=== PATIENT | female | born 1950 | race Caucasian/White ===

== ENCOUNTER 2018-06-03 20:59 | Observation (INO) | payer MEDICARE, BC ==
--- NOTE | 2018-06-03 22:10 | ER Document Report ---
ED General - General Chief Complaint: Palpitations Stated Complaint: NAUSEA, HEART RACING, BACK PAIN Time Seen by Provider: 06/03/18 22:00 Notes: Patient is a 68-year-old female is visiting family from out of town. She says that today she started having severe upper abdominal pain after eating a sandwich. She says she had only about 8 ounces of wine at a wine tasting but did not have a large amount of alcohol. She said after she started eating the same when she started developing upper abdomen. She felt very nauseous. She did have one small bowel movement. She says she has pain extending goes up into her right shoulder blade. No fevers. No actual vomiting. No diarrhea. No blood in her stool. She says she has a lot of pressure in her abdomen going to her back and feels as if she vomited she would feel better. She has a history of a partial colectomy approximately year ago due to recurrent diverticulitis. She is never had bowel obstruction. She denies any dysuria or difficulty urinating. She has no other complaints at this time. She has had previous appendectomy. She still has her gallbladder. Past Medical History - Social History Smoking Status: Never Smoker Frequency of alcohol use: Occasional Drug Abuse: None Family History: Reviewed & Not Pertinent Review of Systems - Review of Systems Notes: My Normal Review Basic REVIEW OF SYSTEMS: CONSTITUTIONAL : Denies fever, chills, or sweats. Denies recent illness. EENT: Denies eye, ear, throat, or mouth pain or symptoms. Denies nasal or sinus congestion. CARDIOVASCULAR: Denies chest pain. RESPIRATORY: Denies cough, cold, or chest congestion. Denies shortness of breath, difficulty breathing, or wheezing. GASTROINTESTINAL: Abdominal pain. Nausea. GENITOURINARY: Denies difficulty urinating, painful urination, burning, frequency, or blood in urine. MUSCULOSKELETAL: Denies neck or back pain or joint pain or swelling. SKIN: Denies rash or skin lesions. Denies weakness or paralysis or loss of use of either side. Denies problems with gait or speech. Denies sensory or motor loss. ALL OTHER SYSTEMS REVIEWED AND NEGATIVE. Physical Exam - Vital signs Vitals: Temp Pulse Resp BP Pulse Ox 99.2 F 121 H 18 141/72 H 95 06/03/18 21:24 06/03/18 21:24 06/03/18 21:24 06/03/18 21:24 06/03/18 21:24 - Notes Notes: General Appearance: Well nourished, alert, cooperative, no acute distress, mild to moderate obvious discomfort. Vitals: reviewed, See vital signs table. Head: no swelling or tenderness to the head Eyes: PERRL, EOMI, Conjuctiva clear Mouth: No decreasd moisture Lungs: No wheezing, No rales, No rhonci, No accessory muscle use, good air exchange bilaterally. Heart: Mildly tachycardic rate, Regular rythm, No murmur, no rub Abdomen: Normal BS, soft, No rigidity, patient has bilateral upper abdominal tenderness that seems worse over the epigastric and right upper quadrant. Lower abdomen is nontender to palpation., No guarding, no rebound, no abdominal masses, no organomegaly Extremities: strength 5/5 in all extremities, good pulses in all extremities, no swelling or tenderness in the extremities, no edema. Skin: warm, dry, appropriate color, no rash Neuro: speech clear, oriented x 3, normal affect, responds appropriately to questions. Course - Re-evaluation Re-evalutation: 06/04/18 00:20 Patient's workup shows evidence of acute cholecystitis. I did reevaluate her abdomen and now her pain is more more focal to the right upper quadrant is worsening of the right upper quadrant. Orders more pain medicine. She also felt warm and reexamination therefore I have ordered some rectal Tylenol. I will order some IV fluids as well. I did call the general surgeon, Dr. Barrios , who agrees to come evaluate the patient for admission. I have ordered Invanz. Dictation of this chart was performed using voice recognition software; therefore, there may be some unintended grammatical errors. - Vital Signs Vital signs: Temp Pulse Resp BP Pulse Ox 99.2 F 121 H 18 141/72 H 95 06/03/18 21:24 06/03/18 21:24 06/03/18 21:24 06/03/18 21:24 06/03/18 21:24 - Laboratory Result Diagrams: 06/03/18 22:25 06/03/18 22:25 Laboratory results interpreted by me: 06/03/18 06/03/18 06/03/18 22:25 22:25 23:41 Seg Neuts % (Manual) 87 H Lymphocytes % (Manual) 4 L Abs Neuts (Manual) 8.6 H Sodium 136.4 L BUN 22 H Glucose 143 H Ur Leukocyte Esterase TRACE H - EKG Interpretation by Me Additional EKG results interpreted by me: 06/03/18 22:01 EKG is reviewed and interpreted by me. EKG shows sinus tachycardia with a rate of [address] segment elevation or depression. No ischemic T wave inversions. OR interval, QRS duration, QTc intervals are within normal range. Old EKG available for comparison. Discharge - Discharge Clinical Impression: Cholecystitis Abdominal pain Qualifiers: Abdominal location: right upper quadrant Qualified Code(s): R10.11 - Right upper quadrant pain Condition: Stable Disposition: ADMITTED INPATIENT Admitting Provider: Surgicalist Unit Admitted: Surgical Floor
[2018-06-03] MEDS ORDERED: ONDANSETRON HCL INJ/PF 4 MG/2 ML SDV IV ONE (22:12)
[2018-06-03] MEDS ORDERED: MORPHINE SULFATE 10 MG/ML INJ IV ONE (22:12)
[2018-06-03 22:48] LABS: HEMATOCRIT 41.3 % (36.0-47.0); HEMOGLOBIN 14.3 g/dL (12.0-15.5); MEAN CORPUSCULAR HEMOGLOBIN 32.4 pg (27.0-33.4); MEAN CORPUSCULAR HGB CONC 34.6 g/dL (32.0-36.0); MEAN CORPUSCULAR VOLUME 94 fl (80-97); PLATELET COUNT 176 10^3/uL (150-450); RED BLOOD COUNT 4.41 10^6/uL (3.72-5.28); RED CELL DISTRIBUTION WIDTH 12.8 % (11.5-14.0); WHITE BLOOD COUNT 9.5 10^3/uL (4.0-10.5)
[2018-06-03 23:09] LABS: ABSOLUTE LYMPHOCYTES# (MANUAL) 0.5 10^3/uL (0.5-4.7); ABSOLUTE MONOCYTES # (MANUAL) 0.5 10^3/uL (0.1-1.4); ABSOLUTE NEUTROPHILS# (MANUAL) 8.6 10^3/uL (1.7-8.2); BAND NEUTROPHILS % (MANUAL) 3 % (3-5); BASOPHILS % (MANUAL) 0 % (0-2); EOSINOPHILS % (MANUAL) 0 % (0-6); LYMPHOCYTES % (MANUAL) 4 % (13-45); MONOCYTES % (MANUAL) 5 % (3-13); SEGMENTED NEUTROPHILS % (MAN) 87 % (42-78); TOTAL CELLS COUNTED 100
--- NOTE | 2018-06-03 23:09 | RADIOLOGY REPORT (SQ) ---
EXAM DESCRIPTION: XR ABDOMEN SUPINE AND ERECT WITH CHEST (ABD ACUTE SERIES) COMPLETED DATE/TME: 06/03/2018 22:13 CLINICAL HISTORY: 68 years, Female, upper abdominal pain COMPARISON: None. NUMBER OF VIEWS: 3 TECHNIQUE: Upright chest with supine and erect views of the abdomen LIMITATIONS: None. FINDINGS: The heart size is normal. Lungs are hyperinflated but clear. Postsurgical change cervical spine. No free air under the hemidiaphragms. Nonspecific, nonobstructive bowel gas pattern. No free air. Abundant stool in the colon. Surgical clips in the right lower quadrant. IMPRESSION: No acute cardiopulmonary process. The lungs are hyperinflated. Abundant stool in the colon. copyright 2010 [employer]- All Rights Reserved
[2018-06-03 23:11] LABS: POIKILOCYTOSIS SLIGHT
[2018-06-03 23:12] LABS: OVALOCYTES SLIGHT; PLATELET COMMENT ADEQUATE
[2018-06-03 23:14] LABS: ALANINE AMINOTRANSFERASE 28 U/L (9-52); ALBUMIN 3.9 g/dL (3.5-5.0); ALKALINE PHOSPHATASE 74 U/L (38-126); ANION GAP 12 (5-19); ASPARTATE AMINO TRANSFERASE 29 U/L (14-36); BILIRUBIN,DIRECT 0.1 mg/dL (0.0-0.4); BILIRUBIN,TOTAL 0.4 mg/dL (0.2-1.3); BLOOD UREA NITROGEN 22 mg/dL (7-20); CALCIUM 8.7 mg/dL (8.4-10.2); CARBON DIOXIDE 26 mmol/L (22-30); CHLORIDE 98 mmol/L (98-107); GLUCOSE 143 mg/dL (75-110); LIPASE 53.3 U/L (23-300); POTASSIUM 3.9 mmol/L (3.6-5.0); SODIUM 136.4 mmol/L (137-145); TOTAL PROTEIN 6.5 g/dL (6.3-8.2)
[2018-06-03 23:57] LABS: APPEARANCE,URINE CLEAR; BILIRUBIN,URINE NEGATIVE (NEGATIVE); COLOR,URINE STRAW; GLUCOSE, URINE NEGATIVE (NEGATIVE); KETONES,URINE NEGATIVE (NEGATIVE); LEUKOCYTE ESTERASE,URINE TRACE (NEGATIVE); NITRITE,URINE NEGATIVE (NEGATIVE); PROTEIN,URINE NEGATIVE (NEGATIVE); URINE SPECIFIC GRAVITY 1.008; UROBILINOGEN,URINE NEGATIVE mg/dL (<2.0)
--- NOTE | 2018-06-04 00:01 | RADIOLOGY REPORT (SQ) ---
EXAM DESCRIPTION: US ABDOMEN DOPPLER LIMITED COMPLETED DATE/TME: 06/03/2018 22:13 CLINICAL HISTORY: 68 years, Female, upper abdominal pain COMPARISON: None. TECHNIQUE: Transverse and longitudinal sonographic images of the right upper quadrant LIMITATIONS: None. FINDINGS: The liver is homogenous in echotexture without focal lesion. There is sludge and stones throughout the gallbladder lumen. No pericholecystic fluid. Gallbladder wall shows mild thickening at 4.9 mm. Pain with palpation over the right upper quadrant. The CBD measures 4.1 mm. There is no ascites. The visualized portions of the right kidney, and abdominal aorta are unremarkable. Pancreas not well seen due to bowel gas.. IMPRESSION: Sludge and stones in the gallbladder lumen. Mild gallbladder wall thickening. The patient had pain with palpation over the right upper quadrant. copyright 2010 [employer]- All Rights Reserved
[2018-06-04] MEDS ORDERED: ACETAMINOPHEN 650 MG SUPP.RECT PR ONE (00:16)
[2018-06-04] MEDS ORDERED: MORPHINE SULFATE 10 MG/ML INJ IV ONE (00:16)
[2018-06-04] MEDS ORDERED: ERTAPENEM SODIUM INJ 1 GM VIAL IV ONE (00:16)
[2018-06-04] MEDS ORDERED: NORMAL SALINE 1000 ML 1,000 ML IV ONE (00:19)
--- NOTE | 2018-06-04 02:28 | PDOC H&P ---
History of Present Illness Admission Date/PCP: 06/04/18 01:01 Patient complains of: abdominal pains History of Present Illness: JOSE FRANCISCO PABLO is a 68 year old female with history of laparoscopic sigmoid colon resection for diverticulitis last year started c/o epigastric and RUQ pains with nausea at 2pm yesterday 2 hrs after eatingnot so fatty meal at lunch time. This was associated with chills but no fever. Ultrasound of gallbladder in the ED showed acute cholecystitis and gallstones with sludge.. Past Medical History Pulmonary Medical History: Reports: Asthma Past Surgical History Past Surgical History: Reports: Appendectomy, Other - laparoscopic partial colon resection for diverticulitis Social History Smoking Status: Never Smoker Family History Family History: Reviewed & Not Pertinent Parental Family History Reviewed: Yes - +heart dis and cancer Children Family History Reviewed: No Sibling(s) Family History Reviewed.: No Medication/Allergy Allergies/Adverse Reactions: cephalexin [From Keflex] Allergy (Verified 06/04/18 01:34) ciprofloxacin [From Cipro] Allergy (Verified 06/04/18 01:34) clarithromycin [From Biaxin] Allergy (Verified 06/04/18 01:34) codeine Allergy (Verified 06/04/18 01:34) doxycycline Allergy (Verified 06/04/18 01:34) gentamicin Allergy (Verified 06/04/18 01:34) levofloxacin [From Levaquin] Allergy (Verified 06/04/18 01:34) moxifloxacin [From Avelox] Allergy (Verified 06/04/18 01:34) Penicillins Allergy (Verified 06/04/18 01:34) Sulfa (Sulfonamide Antibiotics) Allergy (Verified 06/04/18 01:34) tetracycline Allergy (Verified 06/04/18 01:34) Review of Systems Constitutional: PRESENT: as per HPI Eyes: PRESENT: other - no visual/hearing changes Cardiovascular: PRESENT: other - no chest pains/cough Gastrointestinal: PRESENT: abdominal pain, nausea Genitourinary: PRESENT: other - no dysuria Neurological: PRESENT: other - no seizures Hematologic/Lymphatic: PRESENT: other - no easy bruising Physical Exam Vital Signs: Temp Pulse Resp BP Pulse Ox 99.2 F 121 H 21 H 146/79 H 97 06/03/18 21:24 06/03/18 21:24 06/04/18 01:00 06/03/18 22:01 06/04/18 01:00 Intake & Output 06/02/18 06/03/18 06/04/18 06:59 06:59 06:59 Intake Total 1000 Balance 1000 General appearance: PRESENT: mild distress Head exam: PRESENT: atraumatic Eye exam: PRESENT: conjunctiva pink Mouth exam: PRESENT: moist Neck exam: PRESENT: full ROM Respiratory exam: PRESENT: clear to auscultation anselmo Cardiovascular exam: PRESENT: tachycardia Pulses: PRESENT: normal radial pulses Vascular exam: PRESENT: normal capillary refill GI/Abdominal exam: PRESENT: soft, tenderness - epigastrium and RUQ Rectal exam: PRESENT: deferred Extremities exam: PRESENT: full ROM Musculoskeletal exam: PRESENT: ambulatory Neurological exam: PRESENT: alert, oriented to person, oriented to place, oriented to time, oriented to situation Psychiatric exam: PRESENT: appropriate affect Skin exam: PRESENT: normal color, warm Results Impressions: Abdomen Ultrasound 06/03/18 22:13 IMPRESSION: Sludge and stones in the gallbladder lumen. Mild gallbladder wall thickening. The patient had pain with palpation over the right upper quadrant. copyright 2011 [employer]- All Rights Reserved Acute Abdomen Series 06/03/18 22:13 IMPRESSION: No acute cardiopulmonary process. The lungs are hyperinflated. Abundant stool in the colon. copyright 2011 [employer]- All Rights Reserved Assessment & Plan - Diagnosis (1) Cholelithiasis Is this a current diagnosis for this admission?: Yes - Time Time Spent: 30 to 50 Minutes - Inpatient Certification Medical Necessity: Need For IV Fluids, Need for Pain Control, Need for IV Antibiotics, Need for Surgery - Plan Summary Plan Summary: Keep NPO Continue IV antibiotics-Invanz Hydrate For lap dexter by Dr Cisneros today.
--- NOTE | 2018-06-04 07:46 | EKG REPORT ---
SEVERITY:- ABNORMAL ECG - SINUS TACHYCARDIA LEFT ATRIAL ABNORMALITY : Confirmed by: Jeff Betts MD 04-Jun-2018 07:45:55
[2018-06-04] MEDS ORDERED: ERTAPENEM SODIUM 1 GM in NORMAL SALINE 50 ML IV SCH (10:00)
[2018-06-04] MEDS ORDERED: BUPIVACAINE HCL 0.5 % INJ/PF 30 ML SDV ONE (11:11)
[2018-06-04] MEDS ORDERED: HYDROMORPHONE HCL INJ/PF 2 MG/ML AMPULE ONE (11:11)
[2018-06-04] MEDS ORDERED: MIDAZOLAM 2 MG/2 ML INJ ONE (11:11)
[2018-06-04] MEDS ORDERED: ACETAMINOPHEN 1,000 MG/100 ML RTUPB IV ONE (11:12)
[2018-06-04] MEDS ORDERED: PROPOFOL INJ 200 MG/20 ML VIAL IV ONE (11:12)
[2018-06-04] MEDS ORDERED: SCOPOLAMINE HYDROBROMIDE 1.5 MG PATCH.TD72 ONE (11:15)
[2018-06-04] MEDS ORDERED: DIPHENHYDRAMINE HCL 50 MG/ML VIAL IV PRN (12:00)
[2018-06-04] MEDS ORDERED: FENTANYL CITRATE INJ/PF 100 MCG/2 ML AMPUL IV PRN ×3 (12:00)
[2018-06-04] MEDS ORDERED: ONDANSETRON HCL INJ/PF 4 MG/2 ML SDV IV PRN ×2 (12:00→13:16)
[2018-06-04] MEDS ORDERED: PROMETHAZINE HCL INJ 25 MG/1 ML VIAL IV PRN ×2 (12:00)
[2018-06-04] MEDS ORDERED: SCOPOLAMINE HYDROBROMIDE 1.5 MG PATCH.TD72 TD ONE (12:15)
[2018-06-04] MEDS ORDERED: KETOROLAC TROMETHAMINE 10 MG TABLET PO PRN (13:16)
--- NOTE | 2018-06-04 13:22 | Operative Report ---
Operative Report DATE OF SURGERY: 06/04/18 PREOPERATIVE DIAGNOSIS: 1. Symptomatic cholelithiasis and cholecystitis. 2. Previous intra-abdominal surgery POSTOPERATIVE DIAGNOSIS: Same with intra-abdominal adhesions OPERATION: 1. Laparoscopic cholecystectomy. 2. Preoperative lysis of adhesions SURGEON: RICKY GREENE ANESTHESIA: GA TISSUE REMOVED OR ALTERED: Gallbladder with contents COMPLICATIONS: None ESTIMATED BLOOD LOSS: Scant INTRAOPERATIVE FINDINGS: See below PROCEDURE: After obtaining informed consent, the patient was taken to the operating room. General Anesthesia was induced; the arms were extended, and the abdomen was exposed, and prepped and draped in a sterile fashion. Instrumentation was set up for laparoscopic cholecystectomy. Surgical plan and surgical timeout were conducted. A vertical incision was made above the umbilicus, and a a 5 mm non-bladed trocar was inserted the peritoneal cavity pneumoperitoneum was established. The a 35 degrees fixed angled scope was inserted, and under direct visualization 2 additional ports were placed in the far right mid abdomen one at the site of her previous laparoscopy scar fourth port was placed in the subxiphoid position. There was no evidence of visceral or vascular injury. Visualization of the peritoneal cavity confirmed safe uneventful entry. There were dense adhesions between the anterior abdominal distal aspect of the stomach , and sharp dissection. We now placed a grasper on the gallbladder, aspirated the gallbladder with the laparoscopic trocar of approximately 50 cc of bile. We now began taking down the dense adhesions between the gallbladder, and the gastroduodenal taken. The majority of this dissection was a combination of hook cautery, and a full sister dissection. At this point we could place a second grasper on the infundibulum of the gallbladder and the neck of the gallbladder its junction with the cystic duct dissected out. The triangle of Calot was opened widely. Photos taken. The critical view was obtained. The cystic artery cystic vein where the usual location, clipped twice proximally once distally divided with scissors. The cystic duct was now visualized. Photographs taken. The cystic duct was clipped once distally, open with scissors, found to have clear bile without particulate. The cystic duct stump was clipped twice proximally and then the duct divided in its entirety. The gallbladder was removed from the liver bed using hook cautery dissection. Bleeding was negligible. The gallbladder was removed from the patient at the supraumbilical port site with minimal extension of the fascial defect. Return the peritoneal cavity check for bleeding. There was some nuisance bleeding from the retroperitoneal tissues just distal to the duodenum. This was managed with Surgicel application. Drain was felt to be required. We level the patient now check for bleeding there was none. We again inspected the previously taken down adhesions as well as any residual adhesions between the anterior abdominal wall, and the viscera and there was no evidence of luminal injury. We returned to the peritoneal cavity check for bleeding, and evidence of bile leak, and there was none. We Confirmed satisfactory placement of clips on cystic duct and cystic artery were secured . Photos were taken ; at this point we felt the operation was complete. The subcutaneous tissue was then anesthetized with quarter percent Marcaine Sponge and needle counts are correct. All ports removed under direct visualization pneumoperitoneum evacuated, and 5 mm port wounds closed with 0 Vicryl and 3-0 Vicryl suture, benzoin and Steri-Strips. The patient was extubated, and taken to the recovery room in stable condition.
[2018-06-04] MEDS ORDERED: PROMETHAZINE HCL INJ 25 MG/1 ML VIAL ONE (13:44)
[2018-06-04] MEDS ORDERED: SUCCINYLCHOLINE CHLORIDE INJ 200 MG/10 ML VIAL ONE (13:49)
[2018-06-04] MEDS ORDERED: LIDOCAINE 2% INJ-PF (20 MG/ML) 2 ML AMPUL ONE (13:49)
[2018-06-04] MEDS ORDERED: METOCLOPRAMIDE HCL INJ/PF 10 MG/2 ML SDV ONE (13:49)
[2018-06-04] MEDS ORDERED: ROCURONIUM BROMIDE INJ 50 MG/5 ML VIAL IV ONE (13:49)
[2018-06-04] MEDS ORDERED: NEOSTIGMINE METHYLSULFATE 10 MG/10 ML VIAL ONE (13:49)
[2018-06-04] MEDS ORDERED: KETOROLAC TROMETHAMINE 60 MG/2 ML SDV ONE (13:49)
[2018-06-04] MEDS ORDERED: DEXAMETHASONE SOD PHOSPHATE INJ 4 MG/1 ML VIAL ONE (13:49)
[2018-06-04] MEDS ORDERED: GLYCOPYRROLATE 1 MG/5 ML SYRINGE ONE (13:49)
[2018-06-04] MEDS ORDERED: ONDANSETRON HCL INJ/PF 4 MG/2 ML SDV ONE (13:49)
[2018-06-04] MEDS ORDERED: RINGERS SOLUTION,LACTATED 500 ML IV PRN (13:53)
[2018-06-04 19:47] VITALS: BP 115/62
--- NOTE | 2018-06-08 04:17 | DISCHARGE SUMMARY E ---
Discharge Summary NAME: JOSE FRANCISCO PABLO : 1950 AGE: 68Y ADMITTED: 06/04/2018 DISCHARGED: 06/04/2018 CHIEF COMPLAINT: Abdominal pain. SUMMARY OF HOSPITALIZATION: The patient is a 68-year-old female with a history of abdominal pain, nausea, and vomiting. She was evaluated in the Emergency Department at [facility], where she was found to have symptomatic cholelithiasis with cholecystitis. She was admitted to the surgical service, kept n.p.o., and IV fluids. The following morning, the patient was taken to the operating room by Dr. Cisneros, where she underwent laparoscopic cholecystectomy. She tolerated the procedure well. Postprocedure, she had no complications, voided, and tolerated a diet and was discharged home later that day. FINAL DIAGNOSIS: Chronic cholecystitis with cholelithiasis, status post laparoscopic cholecystectomy by Dr. Cisneros. DISPOSITION: The patient will be discharged home in the care of her family. Followup with Dr. Cisneros, [facility], in approximately 1-2 weeks. Resume preoperative medications, diet, and activity. DICTATING PHYSICIAN: RICKY CISNEROS M.D. [id number] PHY#: [id number] ID: [id number] JOB#: [id number] ACCT: [id number] cc:RICKY CISNEROS M.D. [facility],
== END 2018-06-04 20:00 | disposition home or self-care (01) ==
LOC: ER 20:59 → INTOOBSV 06-04 01:01 → EH 06-04 01:01 → 4N 06-04 02:29
PROVIDERS: ATTEND Surgery
PROC: 0FT44ZZ Resection of Gallbladder, Percutaneous Endoscopic Approach (ICD-10-PCS; principal; 2018-06-04 11:15)
DX: K81.1 Chronic cholecystitis (principal); K66.0 Peritoneal adhesions (postprocedural) (postinfection); R00.0 Tachycardia, unspecified; Z90.49 Acquired absence of other specified parts of digestive tract; Z87.19 Personal history of other diseases of the digestive system
CPT/HCPCS: 93005; 96376; 99285; 96375; 96365; 36415; 87040; 83690; 85025; 80053; 81001; 84484; 88304 ×2; 74022; 76705; 93976; 93010; 47562; A9270; J2250; J3490 ×4; J1100; J1885; J1335; J2765; J2270 ×2; J1170; J2550; J0330; J2405 ×2; J7030; J7120; J2704; J0131; 790; G0378